=== PATIENT | male | born 1960 | race Caucasian/White ===

== ENCOUNTER → 2020-07-01 10:40 | Outpatient (CLI) | payer OTHER, SELFPAY ==
[2020-07-01] MEDS: COVID-19 VACC #1, MRNA(MOD) 100 MCG/0.5 ML VIAL IM (10:47)
== END ==
PROVIDERS: Family Provider Internal Medicine; PCP Family Medicine; Visit Provider Internal Medicine
DX: Z23 Encounter for immunization (principal)
CPT/HCPCS: 0011A; 91301

== ENCOUNTER → 2020-07-29 10:40 | Outpatient (CLI) | payer OTHER, SELFPAY ==
[2020-07-29] MEDS: COVID-19 VACC #2, MRNA(MOD) 100 MCG/0.5 ML VIAL IM (10:48)
== END ==
PROVIDERS: Family Provider Internal Medicine; PCP Family Medicine; Visit Provider Internal Medicine
DX: Z23 Encounter for immunization (principal)
CPT/HCPCS: 0012A; 91301